=== PATIENT | female | born 1955 | race Caucasian/White ===

== ENCOUNTER → 2018-07-13 | Outpatient (CLI) | payer BC | LOC: COL.RAD 10:49 | DX: M79.672 Pain in left foot (principal) | CPT/HCPCS: J3301; Q9967 ==

== ENCOUNTER → 2019-05-30 | Outpatient (CLI) | payer BC | LOC: COL.PUL 12:36 | DX: I65.22 Occlusion and stenosis of left carotid artery (principal); N28.0 Ischemia and infarction of kidney; I34.0 Nonrheumatic mitral (valve) insufficiency ==

== ENCOUNTER 2021-06-16 13:24 | Outpatient (RCR) | payer MEDICARE, BC | END 2021-07-16 | disposition home or self-care (01) | LOC: WSST | DX: R13.10 Dysphagia, unspecified (principal); K21.9 Gastro-esophageal reflux disease without esophagitis ==

== ENCOUNTER → 2021-06-16 | Outpatient (CLI) | payer MEDICARE, BC | LOC: ZCOL.LAB 10:12 | DX: Z01.812 Encounter for preprocedural laboratory examination (principal); Z20.822 Contact with and (suspected) exposure to COVID-19 ==

== ENCOUNTER → 2021-06-22 | Outpatient (CLI) | payer MEDICARE, BC | LOC: COL.RAD 14:51 | DX: Z01.812 Encounter for preprocedural laboratory examination (principal); K21.9 Gastro-esophageal reflux disease without esophagitis ==